=== PATIENT | female | born 1990 | race African-American/Black ===

== ENCOUNTER 2016-11-15 22:51 | Emergency (ER) | payer MEDICAID ==
[~2016-11-15] VITALS: Ht 162.6 cm; Wt 75.0 kg
[~2016-11-15 22:51] MED LIST: METR250T15 PO; VENTAER INH
[2016-11-15 22:53] VITALS: BP 144/87; PULSE 110; RESP 15; TEMP 98.2; O2SAT 97
--- NOTE | 2016-11-15 23:11 | PD ---
HPI Chief Complaint: Cold / Flu Symptoms Time Seen by Provider: 23:10 Travel History International Travel<30 days: No Contact w/Intl Traveler<30days: No Traveled to known affect area: No History of Present Illness HPI 26 year-old female presents to this department for evaluation of cough and chest congestion. Patient states has been getting worse over the last few weeks. She does smoke blackened mild. She developed eye irritation and drainage today. She states she woke up and eyes were crusted shut. Subjective fever and chills over the last few weeks but none currently. Denies any nausea vomiting. Denies any other symptoms at this time. PFSH Past Medical History Asthma: Yes Autoimmune Disease: No Blood Disorders: No Anxiety: Yes Depression: No Heart Rhythm Problems: No Cardiovascular Problems: Yes Chest Pain: Yes Cystic Fibrosis: No Developmental Delay: No Diminished Hearing: No Gastrointestinal Disorders: No Genitourinary: No Headaches: Yes Musculoskeletal: No Neurologic: Yes Psychiatric: No Reproductive: No Respiratory: Yes (ASTHMA) Immunizations Current: Yes Sickle Cell Disease: No Sleep Apnea: No ?: Not LMP: 10/31/16 : 4 Para: 4 Miscarriage: 0 : 0 Past Surgical History Surgical History: No Previous Surgery Other Surgery: No Social History Alcohol Use: No Tobacco Use: No Substance Use: Yes (MARIJUANA) Allergies-Medications (Allergen,Severity, Reaction): Coded Allergies: Fish Containing Products (Unverified Allergy, Severe, THROAT EDEMA, HIVES , 11/15/16) azithromycin (Unverified Allergy, Severe, Nausea/Vomiting, HIVES, 11/15/16) ciprofloxacin (Unverified Allergy, Intermediate, HIVES, 11/15/16) Reported Meds & Prescriptions Reported Meds & Active Scripts Active Polytrim Opth Drops (Polymyxin/Trimethoprim Sulfate) 10,000-0.1 Unit/Ml-% Soln 1 Drop EACH EYE Q6HR Proair Hfa 8.5 GM Inh (Albuterol Sulfate) 90 Mcg/Act Aer 2 Puff INH Q4HR PRN 108 mcg/actuation Medrol Dosepak (Methylprednisolone) 4 Mg Dspk 4 Mg PO DIRECTED Per Pharmacist direction Metronidazole 250 Mg Tab 250 Mg PO QID Reported Ventolin Hfa 18 GM Inh (Albuterol Sulfate) 90 Mcg/Act Aer 1 Puff INH Q4H PRN Review of Systems Except as stated in HPI: all other systems reviewed are Neg Physical Exam Narrative GENERAL: Well-nourished, well-developed male patient in no acute distress SKIN: Focused skin assessment warm/dry. HEAD: Normocephalic. EYES: No scleral icterus. The lateral scleral injection with crusting of the eyelashes. NECK: Supple, trachea midline. No JVD or lymphadenopathy. CARDIOVASCULAR: Regular rate and rhythm without murmurs, gallops, or rubs. RESPIRATORY: Breath sounds coarse scattered rhonchi and faint inspiratory wheeze , equal bilaterally. No accessory muscle use. GASTROINTESTINAL: Abdomen soft, non-tender, nondistended. MUSCULOSKELETAL: No cyanosis, or edema. BACK: Nontender without obvious deformity. No CVA tenderness. Data Data Last Documented VS Vital Signs Date Time Temp Pulse Resp B/P (MAP) Pulse Ox O2 Delivery O2 Flow Rate FiO2 11/16/16 00:08 11/15/16 22:53 98.2 110 15 97 Room Air Orders Orders Albuterol-Ipratropium Neb (Duoneb Neb) (11/15/16 23:15) Chest, Single Ap (11/15/16 ) Dexamethasone Inj (Decadron Inj) (11/15/16 23:15) MDM Medical Decision Making Medical Screen Exam Complete: Yes Emergency Medical Condition: Yes Medical Record Reviewed: Yes Differential Diagnosis Bronchitis versus pneumonia versus influenza versus allergies Narrative Course 26-year-old female presents to emergency department for evaluation. Findings are consistent with bronchitis, however Patient has been having cough and congestion for the last few weeks. X-ray is complete without acute cardiopulmonary disease. Patient will be treated for conjunctivitis well. Is encouraged to follow-up with primary care provider and return immediately with any acute worsening symptoms. Diagnosis Primary Impression: Conjunctivitis Qualified Codes: H10.33 - Unspecified acute conjunctivitis, bilateral Additional Impression: Bronchitis Referrals: Primary Care Physician Patient Instructions: Conjunctivitis (GEN), General Instructions Additional Instructions: Stop smoking Do not rub your eyes Frequent hand washing Over the counter antihistamine such as benadryl as directed on the package as needed for eye irritation Follow up with your primary care provider Return immediately with acute worsening of symptoms Med/Other Pt SpecificInfo: Prescription(s) given Scripts Polymyxin B-Trimethoprim Opth Drops (Polytrim Opth Drops) 10,000-0.1 Unit/Ml-% Soln 1 DROP EACH EYE Q6HR for Mgmt Bacterial Infection, #1 BOTTLE 0 Refills Prov: Cate Franklin 11/16/16 Albuterol 8.5 GM Inh (Proair Hfa 8.5 GM Inh) 90 Mcg/Act Aer 2 PUFF INH Q4HR Y for SHORTNESS OF BREATH, #1 INHALER 0 Refills 108 mcg/actuation Prov: Cate Franklin 11/16/16 Methylprednisolone Dosepak (Medrol Dosepak) 4 Mg Dspk 4 MG PO DIRECTED, #1 DSPK 0 Refills Per Pharmacist direction Prov: Cate Franklin 11/16/16 Disposition: 01 DISCHARGE HOME Condition: Stable Cate Franklin Nov 15, 2016 23:11
[2016-11-15] MEDS ORDERED: RESP: ALBUTEROL 2.5 MG/IPRATROPIUM 0.5 MG NEB (SCH) NEB ONE (23:15)
[2016-11-15] MEDS ORDERED: DEXAMETHASONE SOD PHOS 20 MG/5 ML VIAL IM ONE (23:15)
--- NOTE | 2016-11-15 23:38 | RADRPT ---
EXAM DATE/TIME: 11/15/2016 23:15 [facility] COMPARISON: CHEST SINGLE AP, October 22, 2014, 17:56. INDICATIONS : Coughing and wheezing MEDICAL HISTORY : None. SURGICAL HISTORY : None. ENCOUNTER: Initial ACUITY: 1 day PAIN SCORE: 6/10 LOCATION: Bilateral chest FINDINGS: A single view of the chest demonstrates the lungs to be symmetrically aerated without evidence of mas s, infiltrate or effusion. The cardiomediastinal contours are unremarkable. Osseous structures are intact. CONCLUSION: No evidence of acute cardiopulmonary disease. Jhon Pedraza MD on November 15, 2016 at 23:37 Board Certified Radiologist. This report was verified electronically.
[2016-11-16] MEDS ORDERED: POLY10O EACH EYE (00:09)
[2016-11-16] MEDS ORDERED: ALBUAER3 INH (00:09)
[2016-11-16] MEDS ORDERED: MEDR4PAK PO (00:09)
== END 2016-11-16 00:23 | disposition home or self-care (01) ==
LOC: NEPD 22:51
DX: H10.33 Unspecified acute conjunctivitis, bilateral (principal); J40 Bronchitis, not specified as acute or chronic
CPT/HCPCS: 71010; 94664; 96372; 99284; J1100

== ENCOUNTER 2017-04-02 11:32 | Emergency (ER) | payer MEDICAID ==
[~2017-04-02] VITALS: Ht 160 cm; Wt 61.4 kg
[2017-04-02 11:32] VITALS: BP 140/84; PULSE 74; RESP 18; TEMP 98.8; O2SAT 96
[~2017-04-02 11:32] MED LIST changes: +ALBUAER3 INH; +MEDR4PAK PO; -METR250T15 PO; +METR250T23 PO; +POLY10O EACH EYE
[2017-04-02 12:05] LABS: AUTOMATED NEUTROPHIL # 3.3 TH/MM3 (1.8-7.7); BASOPHIL # 0.1 TH/MM3 (0-0.2); BASOPHIL % 0.9 % (0.0-2.0); EOSINOPHIL # 0.1 TH/MM3 (0-0.4); EOSINOPHIL % 1.2 % (0.0-4.0); HEMATOCRIT 40.4 % (35.0-46.0); HEMOGLOBIN 13.7 GM/DL (11.6-15.3); LYMPH % 35.5 % (9.0-44.0); LYMPHOCYTE # 2.2 TH/MM3 (1.0-4.8); MEAN CELL VOLUME 82.7 FL (80.0-100.0); MEAN CORPUSCULAR HEMOGLOBIN 28.1 PG (27.0-34.0); MEAN PLATELET VOLUME 7.6 FL (7.0-11.0); MONO % 8.7 % (0.0-8.0); MONOCYTE # 0.5 TH/MM3 (0-0.9); NEUT % 53.7 % (16.0-70.0); PLATELET COUNT 308 TH/MM3 (150-450); RED BLOOD COUNT 4.88 MIL/MM3 (4.00-5.30); RED CELL DISTRIBUTION WIDTH 13.6 % (11.6-17.2); WHITE BLOOD COUNT 6.1 TH/MM3 (4.0-11.0)
[2017-04-02 12:35] LABS: ALBUMIN 3.6 GM/DL (3.4-5.0); AST (GOT) 17 U/L (15-37); BICARBONATE 25.3 MEQ/L (21.0-32.0); BLOOD UREA NITROGEN 7 MG/DL (7-18); CALCIUM 9.1 MG/DL (8.5-10.1); CHLORIDE 106 MEQ/L (98-107); CREATININE 0.74 MG/DL (0.50-1.00); GLOMERULAR FILTRATION RATE 116 ML/MIN (>89); GLUCOSE,RANDOM 83 MG/DL (74-106); LIPASE 72 U/L (73-393); SODIUM (NA) 139 MEQ/L (136-145)
[2017-04-02 12:38] LABS: ALKALINE PHOSPHATASE 59 U/L (45-117); ALT (GPT) 17 U/L (10-53); TOTAL BILIRUBIN ADULT 0.2 MG/DL (0.2-1.0); TOTAL PROTEIN 7.5 GM/DL (6.4-8.2)
[2017-04-02] MEDS ORDERED: SODIUM CHLOR 0.9% 1000 ML INJ 1,000 ML IV SCH (13:02)
[2017-04-02] MEDS ORDERED: ONDANSETRON HCL 4 MG/2 ML VIAL IVP ONE (13:15)
[2017-04-02] MEDS ORDERED: MORPHINE SULFATE 2 MG/ML INJ IV PUSH ONE (13:15)
[2017-04-02] MEDS ORDERED: PANTOPRAZOLE SODIUM 40 MG VIAL IVP ONE (13:15)
[2017-04-02] MEDS ORDERED: ALUMINUM/MAGNESIUM/SIMETH 30 ML CUP PO ONE (13:45)
[2017-04-02] MEDS ORDERED: LIDOCAINE VISCOUS 2% SOLN 15 ML UDC SWISH-SWAL ONE (13:45)
[2017-04-02] MEDS ORDERED: ATROPINE/SCOPOLAM/HYOSCYAM/PB ELIXIR 10 ML CUP PO ONE (13:45)
[2017-04-02 13:49] LABS: BACTERIA, URINE RARE /hpf; BILIRUBIN, URINE NEG (NEG); BLOOD, URINE NEG (NEG); GLUCOSE,URINE NEG (NEG); KETONE, URINE 10 mg/dL (NEG); MUCUS URINE FEW /lpf (OCC); NITRITE,URINE NEG (NEG); SQUAMOUS EPITHELIAL CELL URINE 4 /hpf (0-5); TRANSITIONAL EPI CELLS, URINE <1 /hpf; URINE COLOR YELLOW (YELLW/STRAW); URINE LEUKOCYTE ESTERASE NEG (NEG)
--- NOTE | 2017-04-02 13:58 | PD ---
HPI Chief Complaint: Abdominal Pain Time Seen by Provider: 12:50 Travel History International Travel<30 days: No Contact w/Intl Traveler<30days: No Traveled to known affect area: No History of Present Illness HPI 26-year-old female that presents to the ED for evaluation of abdominal pain. Patient states that she's been having nausea and vomiting and epigastric pain as well as diarrhea for the past 2 days. She does tell me that she did drink alcohol yesterday and was able to eat yesterday but today she has not been able to keep anything down. She feels that she cannot eat. She denies any surgeries to her abdomen. Per patient her abdominal pain is on the upper area of the abdomen. She denies having anything like this before. No lower abdominal pain. No vaginal discharge or bleeding. No . Per patient her pain is 8 out of 10. mainly to the upper abdomen. She has multiple allergies to different medications. Denies any urinary symptoms. PFSH Past Medical History Asthma: Yes Autoimmune Disease: No Blood Disorders: No Anxiety: Yes Depression: No Heart Rhythm Problems: No Cardiovascular Problems: Yes Chest Pain: Yes Cystic Fibrosis: No Developmental Delay: No Diminished Hearing: No Gastrointestinal Disorders: No Genitourinary: No Headaches: Yes Musculoskeletal: No Neurologic: Yes Psychiatric: No Reproductive: No Respiratory: Yes (asthma) Immunizations Current: Yes Sickle Cell Disease: No Sleep Apnea: No Influenza Vaccination: Yes ?: Not LMP: 03/27/17 : 4 Para: 4 Miscarriage: 0 : 0 Past Surgical History Other Surgery: No Social History Alcohol Use: Yes Tobacco Use: No Substance Use: Yes (MARIJUANA) Allergies-Medications (Allergen,Severity, Reaction): Coded Allergies: Fish Containing Products (Unverified Allergy, Severe, THROAT EDEMA, HIVES , 04/02/17) azithromycin (Unverified Allergy, Severe, Nausea/Vomiting, HIVES, 04/02/17) ciprofloxacin (Unverified Allergy, Intermediate, HIVES, 04/02/17) Reported Meds & Prescriptions Reported Meds & Active Scripts Active Polytrim Opth Drops (Polymyxin/Trimethoprim Sulfate) 10,000-0.1 Unit/Ml-% Soln 1 Drop EACH EYE Q6HR Proair Hfa 8.5 GM Inh (Albuterol Sulfate) 90 Mcg/Act Aer 2 Puff INH Q4HR PRN 108 mcg/actuation Medrol Dosepak (Methylprednisolone) 4 Mg Dspk 4 Mg PO DIRECTED Per Pharmacist direction Metronidazole 250 Mg Tab 250 Mg PO QID Reported Ventolin Hfa 18 GM Inh (Albuterol Sulfate) 90 Mcg/Act Aer 1 Puff INH Q4H PRN Review of Systems Except as stated in HPI: all other systems reviewed are Neg Physical Exam Narrative GENERAL: SKIN: Warm and dry. HEAD: Atraumatic. Normocephalic. EYES: Pupils equal and round. No scleral icterus. No injection or drainage. ENT: No nasal bleeding or discharge. Mucous membranes pink and moist. Tongue is midline. No uvula deviation. NECK: Trachea midline. No JVD. CARDIOVASCULAR: Regular rate and rhythm. No murmurs, S3, S4. RESPIRATORY: No accessory muscle use. Clear to auscultation. Breath sounds equal bilaterally. GASTROINTESTINAL: Abdomen soft, tender to palpation on the epigastric area, nondistended. Hepatic and splenic margins not palpable. MUSCULOSKELETAL: Extremities without clubbing, cyanosis, or edema. No obvious deformities. Full range of motion of the upper and lower extremities bilaterally. 2+ pulses bilaterally. NEUROLOGICAL: Awake and alert. No obvious cranial nerve deficits. Motor grossly within normal limits. Five out of 5 muscle strength in the arms and legs. Normal speech. PSYCHIATRIC: Appropriate mood and affect; insight and judgment normal. Data Data Last Documented VS Vital Signs Date Time Temp Pulse Resp B/P (MAP) Pulse Ox O2 Delivery O2 Flow Rate FiO2 04/02/17 15:14 71 18 124/70 (88) 98 Room Air 04/02/17 11:32 98.8 Orders Orders Complete Blood Count With Diff (04/02/17 11:38) Comprehensive Metabolic Panel (04/02/17 11:38) Lipase (04/02/17 11:38) Urinalysis - C+S If Indicated (04/02/17 11:38) Ed Urine Pregnancytest Poc (04/02/17 11:38) Iv Access Insert/Monitor (04/02/17 13:02) Ondansetron Inj (Zofran Inj) (04/02/17 13:15) Pantoprazole Inj (Protonix Inj) (04/02/17 13:15) Sodium Chlor 0.9% 1000 Ml Inj (Ns 1000 M (04/02/17 13:02) Morphine Inj (Morphine Inj) (04/02/17 13:15) Ed Poc Ultrasound (04/02/17 ) Al-Mag Hy-Si 40-40-4 Mg/Ml Liq (Mag-Al P (04/02/17 13:45) Lidocaine 2% Viscous (Xylocaine 2% Visco (04/02/17 13:45) Oozjq-Iiogfk-Wuvopq-Pb Liq ( Liq (04/02/17 13:45) Ondansetron Inj (Zofran Inj) (04/02/17 14:00) Famotidine Inj (Pepcid Inj) (04/02/17 14:00) Ed Discharge Order (04/02/17 15:50) Labs Laboratory Tests Test 04/02/17 11:51 04/02/17 12:40 White Blood Count 6.1 TH/MM3 Red Blood Count 4.88 MIL/MM3 Hemoglobin 13.7 GM/DL Hematocrit 40.4 % Mean Corpuscular Volume 82.7 FL Mean Corpuscular Hemoglobin 28.1 PG Mean Corpuscular Hemoglobin Concent 34.0 % Red Cell Distribution Width 13.6 % Platelet Count 308 TH/MM3 Mean Platelet Volume 7.6 FL Neutrophils (%) (Auto) 53.7 % Lymphocytes (%) (Auto) 35.5 % Monocytes (%) (Auto) 8.7 % Eosinophils (%) (Auto) 1.2 % Basophils (%) (Auto) 0.9 % Neutrophils # (Auto) 3.3 TH/MM3 Lymphocytes # (Auto) 2.2 TH/MM3 Monocytes # (Auto) 0.5 TH/MM3 Eosinophils # (Auto) 0.1 TH/MM3 Basophils # (Auto) 0.1 TH/MM3 CBC Comment DIFF FINAL Differential Comment Blood Urea Nitrogen 7 MG/DL Creatinine 0.74 MG/DL Random Glucose 83 MG/DL Total Protein 7.5 GM/DL Albumin 3.6 GM/DL Calcium Level 9.1 MG/DL Alkaline Phosphatase 59 U/L Aspartate Amino Transf (AST/SGOT) 17 U/L Alanine Aminotransferase (ALT/SGPT) 17 U/L Total Bilirubin 0.2 MG/DL Sodium Level 139 MEQ/L Potassium Level 3.8 MEQ/L Chloride Level 106 MEQ/L Carbon Dioxide Level 25.3 MEQ/L Anion Gap 8 MEQ/L Estimat Glomerular Filtration Rate 116 ML/MIN Lipase 72 U/L Urine Color YELLOW Urine Turbidity CLEAR Urine pH 7.0 Urine Specific [place] 1.028 Urine Protein 30 mg/dL Urine Glucose (UA) NEG mg/dL Urine Ketones 10 mg/dL Urine Occult Blood NEG Urine Nitrite NEG Urine Bilirubin NEG Urine Urobilinogen 2.0 MG/DL Urine Leukocyte Esterase NEG Urine RBC 1 /hpf Urine WBC 1 /hpf Urine Squamous Epithelial Cells 4 /hpf Urine Transitional Epithelial Cells <1 /hpf Urine Bacteria RARE /hpf Urine Mucus FEW /lpf Microscopic Urinalysis Comment CULT NOT INDICATED MDM Medical Decision Making Medical Screen Exam Complete: Yes Emergency Medical Condition: Yes Medical Record Reviewed: Yes Interpretation(s) CBC & BMP Diagram 04/02/17 11:51 Total Protein 7.5, Albumin 3.6, Calcium Level 9.1, Alkaline Phosphatase 59, Aspartate Amino Transf (AST/SGOT) 17, Alanine Aminotransferase (ALT/SGPT) 17, Total Bilirubin 0.2 lipase WNL UA negative Differential Diagnosis Gastritis versus gallbladder disease versus pancreatitis versus alcohol induced gastritis versus nausea and vomiting versus diarrhea versus intractable nausea and vomiting Narrative Course 26-year-old female that presents to the ED for evaluation of epigastric pain and nausea and vomiting. Patient was properly examined and was found to have signs and symptoms of unclear etiology but appears to be possible gastritis. She does have a history of alcohol use and she stated that she did drink yesterday heavily. She has epigastric pain with nausea and vomiting. Labs and imaging were ordered. My attending perform an ultrasound at bedside and did not show any sign of gallbladder disease. Patient was given GI cocktail but she threw it back up. Patient cannot keep anything down at this time. Case was discussed in my attending Dr Valle who recommends more antiemetics. Patient was given more antiemetics and feels improved although still somewhat uneasy. Per family patient has been drinking a lot of alcohol likely secondary to this patient's having gastritis. She does not appear to have any signs of acute abdomen. CT scan recommend at this time because of this. Patient will be given prescription for Protonix, Zantac, Zofran. Told to hold alcohol until better. See ED worsening symptoms. Follow with PCP. Diagnosis Primary Impression: Gastritis Qualified Codes: K29.20 - Alcoholic gastritis without bleeding Patient Instructions: General Instructions, Narcotic given in the ED Additional Instructions: Take medications as prescribed. Please avoid alcohol until better. See ED worsening symptoms. Follow with PCP. Drink plenty of fluids. Med/Other Pt SpecificInfo: Prescription(s) given Scripts Ondansetron Odt (Zofran Odt) 4 Mg Tab 4 MG SL Q6HR Y for Nausea/Vomiting, #30 TAB 0 Refills Prov: Chery Valle MD 04/02/17 Ranitidine (Zantac) 150 Mg Tab 150 MG PO BID for Reduce Stomach Acid, #20 TAB 0 Refills Prov: Chery Valle MD 04/02/17 Pantoprazole (Protonix) 20 Mg Tab 20 MG PO DAILY for Reflux, #30 TAB 0 Refills Prov: Chery Valle MD 04/02/17 Disposition: 01 DISCHARGE HOME Condition: Stable Jose David Salazar Apr 02, 2017 13:58
[2017-04-02] MEDS ORDERED: FAMOTIDINE 20 MG/2 ML VIAL IV PUSH ONE (14:00)
[2017-04-02] MEDS ORDERED: ONDANSETRON HCL 4 MG/2 ML VIAL IV PUSH ONE (14:00)
[2017-04-02 15:14] VITALS: BP 124/70; PULSE 71; RESP 18; O2SAT 98
[2017-04-02] MEDS ORDERED: ZOFR4TAB3 SL (15:51)
[2017-04-02] MEDS ORDERED: PANT20 PO (15:51)
[2017-04-02] MEDS ORDERED: ZANT150T2 PO (15:51)
--- NOTE | 2017-04-02 16:11 | PD ---
Data Data Last Documented VS Vital Signs Date Time Temp Pulse Resp B/P (MAP) Pulse Ox O2 Delivery O2 Flow Rate FiO2 04/02/17 15:14 71 18 124/70 (88) 98 Room Air 04/02/17 11:32 98.8 Orders Orders Complete Blood Count With Diff (04/02/17 11:38) Comprehensive Metabolic Panel (04/02/17 11:38) Lipase (04/02/17 11:38) Urinalysis - C+S If Indicated (04/02/17 11:38) Ed Urine Pregnancytest Poc (04/02/17 11:38) Iv Access Insert/Monitor (04/02/17 13:02) Ondansetron Inj (Zofran Inj) (04/02/17 13:15) Pantoprazole Inj (Protonix Inj) (04/02/17 13:15) Sodium Chlor 0.9% 1000 Ml Inj (Ns 1000 M (04/02/17 13:02) Morphine Inj (Morphine Inj) (04/02/17 13:15) Ed Poc Ultrasound (04/02/17 ) Al-Mag Hy-Si 40-40-4 Mg/Ml Liq (Mag-Al P (04/02/17 13:45) Lidocaine 2% Viscous (Xylocaine 2% Visco (04/02/17 13:45) Bhjeo-Orvapo-Hpaofd-Pb Liq ( Liq (04/02/17 13:45) Ondansetron Inj (Zofran Inj) (04/02/17 14:00) Famotidine Inj (Pepcid Inj) (04/02/17 14:00) Ed Discharge Order (04/02/17 15:50) Labs Laboratory Tests Test 04/02/17 11:51 04/02/17 12:40 White Blood Count 6.1 TH/MM3 Red Blood Count 4.88 MIL/MM3 Hemoglobin 13.7 GM/DL Hematocrit 40.4 % Mean Corpuscular Volume 82.7 FL Mean Corpuscular Hemoglobin 28.1 PG Mean Corpuscular Hemoglobin Concent 34.0 % Red Cell Distribution Width 13.6 % Platelet Count 308 TH/MM3 Mean Platelet Volume 7.6 FL Neutrophils (%) (Auto) 53.7 % Lymphocytes (%) (Auto) 35.5 % Monocytes (%) (Auto) 8.7 % Eosinophils (%) (Auto) 1.2 % Basophils (%) (Auto) 0.9 % Neutrophils # (Auto) 3.3 TH/MM3 Lymphocytes # (Auto) 2.2 TH/MM3 Monocytes # (Auto) 0.5 TH/MM3 Eosinophils # (Auto) 0.1 TH/MM3 Basophils # (Auto) 0.1 TH/MM3 CBC Comment DIFF FINAL Differential Comment Blood Urea Nitrogen 7 MG/DL Creatinine 0.74 MG/DL Random Glucose 83 MG/DL Total Protein 7.5 GM/DL Albumin 3.6 GM/DL Calcium Level 9.1 MG/DL Alkaline Phosphatase 59 U/L Aspartate Amino Transf (AST/SGOT) 17 U/L Alanine Aminotransferase (ALT/SGPT) 17 U/L Total Bilirubin 0.2 MG/DL Sodium Level 139 MEQ/L Potassium Level 3.8 MEQ/L Chloride Level 106 MEQ/L Carbon Dioxide Level 25.3 MEQ/L Anion Gap 8 MEQ/L Estimat Glomerular Filtration Rate 116 ML/MIN Lipase 72 U/L Urine Color YELLOW Urine Turbidity CLEAR Urine pH 7.0 Urine Specific [place] 1.028 Urine Protein 30 mg/dL Urine Glucose (UA) NEG mg/dL Urine Ketones 10 mg/dL Urine Occult Blood NEG Urine Nitrite NEG Urine Bilirubin NEG Urine Urobilinogen 2.0 MG/DL Urine Leukocyte Esterase NEG Urine RBC 1 /hpf Urine WBC 1 /hpf Urine Squamous Epithelial Cells 4 /hpf Urine Transitional Epithelial Cells <1 /hpf Urine Bacteria RARE /hpf Urine Mucus FEW /lpf Microscopic Urinalysis Comment CULT NOT INDICATED MDM Supervised Visit with DARRELL: Yes Narrative Course The history, exam, and medical decision-making in the associated midlevel provider note were completed with my assistance. I reviewed and agree with the findings presented. I attest that I had a [id number] encounter with the patient on the same day, and personally performed and documented my assessment and findings in the medical record. *My assessment and Findings: This is a 26-year-old female who has a history of alcoholic gastritis who presents to the emergency department with epigastric abdominal pain and vomiting. She's had pain like this before. She is tender only in the epigastrium. She has no peritoneal signs. She feels much better after antiemetics and IV hydration. Labs are all reassuring. I performed a [id number] ultrasound of her gallbladder which was reassuring. I think the patient can be discharged home. Procedures Procedure Narrative Gallbladder ultrasound: no gallstones, no pericholecystic fluid, no sonographic burt's sign, gallbladder wall is .17cm, CBD measures .14 cm Diagnosis Primary Impression: Gastritis Qualified Codes: K29.20 - Alcoholic gastritis without bleeding Patient Instructions: General Instructions, Narcotic given in the ED Additional Instruction: Take medications as prescribed. Please avoid alcohol until better. See ED worsening symptoms. Follow with PCP. Drink plenty of fluids. Scripts Ondansetron Odt (Zofran Odt) 4 Mg Tab 4 MG SL Q6HR Y for Nausea/Vomiting, #30 TAB 0 Refills Prov: Chery Valle MD 04/02/17 Ranitidine (Zantac) 150 Mg Tab 150 MG PO BID for Reduce Stomach Acid, #20 TAB 0 Refills Prov: Chery Valle MD 04/02/17 Pantoprazole (Protonix) 20 Mg Tab 20 MG PO DAILY for Reflux, #30 TAB 0 Refills Prov: Chery Valle MD 04/02/17 Disposition: 01 DISCHARGE HOME Condition: Stable Chery Valle MD Apr 02, 2017 16:11
== END 2017-04-02 16:48 | disposition home or self-care (01) ==
LOC: NEPD 11:32
DX: K29.70 Gastritis, unspecified, without bleeding (principal); J45.909 Unspecified asthma, uncomplicated; F41.9 Anxiety disorder, unspecified; Z79.899 Other long term (current) drug therapy
CPT/HCPCS: 80053; 81001; 83690; 85025; 96361; 96374; 96375; 96376; 99285; C9113; J2270; J2405; J7030

== ENCOUNTER 2017-05-15 22:49 | Emergency (ER) | payer MEDICAID ==
[~2017-05-15 22:49] MED LIST changes: +PANT20 PO; +ZANT150T2 PO; +ZOFR4TAB3 SL
[2017-05-15 23:29] VITALS: BP 121/73; PULSE 97; RESP 16; TEMP 98.5; O2SAT 100
== END 2017-05-16 00:30 | disposition left against medical advice (07) ==
LOC: NED 23:59
DX: R06.02 Shortness of breath (principal); M54.9 Dorsalgia, unspecified; Z53.21 Procedure and treatment not carried out due to patient leaving prior to being seen by health care provider
CPT/HCPCS: 99281

== ENCOUNTER 2017-06-09 18:36 | Emergency (ER) | payer SELFPAY ==
[~2017-06-09] VITALS: Ht 160 cm; Wt 57.3 kg
[2017-06-09 19:06] VITALS: BP 116/61; PULSE 65; RESP 18; TEMP 99.1; O2SAT 98
[2017-06-09] MEDS ORDERED: AMOX875T PO (19:41)
[2017-06-09] MEDS ORDERED: ACETAMINOPHEN 325 MG TAB PO ONE (19:45)
--- NOTE | 2017-06-09 19:45 | PD ---
HPI Chief Complaint: ENT Complaint Time Seen by Provider: 19:38 Travel History International Travel<30 days: No Contact w/Intl Traveler<30days: No Traveled to known affect area: No History of Present Illness HPI 26-year-old female presents for evaluation of a sore throat. Symptoms started 3 days ago. It hurts to swallow. Alleviated by not swallowing. Denies cough, congestion, rash, recent travel, sick contacts, fevers, chills, ear pain. She has no other complaints at this time. PFSH Past Medical History Asthma: Yes Autoimmune Disease: No Blood Disorders: No Anxiety: Yes Depression: No Heart Rhythm Problems: No Cardiovascular Problems: Yes Chest Pain: Yes Cystic Fibrosis: No Developmental Delay: No Diminished Hearing: No Gastrointestinal Disorders: No Genitourinary: No Headaches: Yes Musculoskeletal: No Neurologic: Yes Psychiatric: No Reproductive: No Respiratory: Yes (asthma) Immunizations Current: Yes Sickle Cell Disease: No Sleep Apnea: No ?: Not LMP: 2 weeks ago : 4 Para: 4 Miscarriage: 0 : 0 Past Surgical History Other Surgery: No Social History Alcohol Use: Yes Tobacco Use: No Substance Use: Yes (MARIJUANA) Allergies-Medications (Allergen,Severity, Reaction): Coded Allergies: Fish Containing Products (Unverified Allergy, Severe, THROAT EDEMA, HIVES , 05/15/17) azithromycin (Unverified Allergy, Severe, Nausea/Vomiting, HIVES, 05/15/17) ciprofloxacin (Unverified Allergy, Intermediate, HIVES, 05/15/17) Reported Meds & Prescriptions Reported Meds & Active Scripts Active Amoxicillin 875 Mg Tab 875 Mg PO BID 10 Days Zofran Odt (Ondansetron Odt) 4 Mg Tab 4 Mg SL Q6HR PRN Zantac (Ranitidine HCl) 150 Mg Tab 150 Mg PO BID Protonix (Pantoprazole Sodium) 20 Mg Tab 20 Mg PO DAILY Polytrim Opth Drops (Polymyxin/Trimethoprim Sulfate) 10,000-0.1 Unit/Ml-% Soln 1 Drop EACH EYE Q6HR Proair Hfa 8.5 GM Inh (Albuterol Sulfate) 90 Mcg/Act Aer 2 Puff INH Q4HR PRN 108 mcg/actuation Medrol Dosepak (Methylprednisolone) 4 Mg Dspk 4 Mg PO DIRECTED Per Pharmacist direction Metronidazole 250 Mg Tab 250 Mg PO QID Reported Ventolin Hfa 18 GM Inh (Albuterol Sulfate) 90 Mcg/Act Aer 1 Puff INH Q4H PRN Review of Systems Except as stated in HPI: all other systems reviewed are Neg Physical Exam Narrative GENERAL: Well-developed well-nourished female no acute distress SKIN: Warm and dry. HEAD: Atraumatic. Normocephalic. EYES: Pupils equal and round. No scleral icterus. No injection or drainage. ENT: No nasal bleeding or discharge. Mucous membranes pink and moist. There is oropharyngeal erythema and exudate formation. Uvula midline with no mass- effect. NECK: Trachea midline. No JVD. There is mild tenderness anterior cervical lymphadenopathy present. CARDIOVASCULAR: Regular rate and rhythm. No murmur appreciated. RESPIRATORY: No accessory muscle use. Clear to auscultation. Breath sounds equal bilaterally. Data Data Last Documented VS Vital Signs Date Time Temp Pulse Resp B/P (MAP) Pulse Ox O2 Delivery O2 Flow Rate FiO2 06/09/17 19:06 99.1 65 18 116/61 (79) 98 MDM Medical Decision Making Medical Screen Exam Complete: Yes Emergency Medical Condition: Yes Medical Record Reviewed: Yes Differential Diagnosis Exudative pharyngitis, tonsillitis, peritonsillar abscess, infectious mononucleosis, herpangina, epiglottitis Narrative Course 26-year-old female presents with 3 days of sore throat. Examination reveals exudative pharyngitis, anterior cervical lymphadenopathy. The patient will be treated with amoxicillin. Diagnosis Primary Impression: Exudative pharyngitis Additional Instructions: Medication as prescribed. Tylenol Motrin for pain. Stay well hydrated and well -nourished. Return for any emergent medical conditions. Med/Other Pt SpecificInfo: Prescription(s) given Scripts Amoxicillin (Amoxicillin) 875 Mg Tab 875 MG PO BID for Infection for 10 Days, #20 TAB 0 Refills Prov: Eri Rosado MD 06/09/17 Disposition: 01 DISCHARGE HOME Condition: Stable Kvng Posada Jun 09, 2017 19:45
== END 2017-06-09 20:20 | disposition home or self-care (01) ==
LOC: NED 18:36 → NEPK 20:20
DX: J02.9 Acute pharyngitis, unspecified (principal); J45.909 Unspecified asthma, uncomplicated; F12.90 Cannabis use, unspecified, uncomplicated
CPT/HCPCS: 99283